=== PATIENT | female | born 1950 | race Caucasian/White ===

== ENCOUNTER 2019-09-18 13:24 | Inpatient (IN) | payer OTHER ==
[~2019-09-18] VITALS: Ht 160 cm; Wt 67.1 kg
[2019-09-18 13:31] VITALS: BP_SYST 143
[2019-09-18 14:06] LABS: BASOPHILS % (AUTO) 0.4 % (0.0-2.0); EOSINOPHILS # (AUTO) 0.1 K/uL (0.0-0.4); EOSINOPHILS % (AUTO) 1.3 % (0.0-4.0); HEMATOCRIT 50.1 % (36-48); HEMOGLOBIN 16.8 g/dL (12.0-16.0); LYMPHOCYTES # (AUTO) 0.7 K/uL (1.0-5.5); LYMPHOCYTES % (AUTO) 11.1 % (20.5-51.5); MEAN CORPUSCULAR HEMOGLOBIN 34 pg (27-31); MEAN CORPUSCULAR HGB CONC 34 % (32-36); MEAN CORPUSCULAR VOLUME 101 fL (79.0-98.0); MONOCYTES # (AUTO) 0.7 K/uL (0.0-1.0); MONOCYTES % (AUTO) 10.5 % (1.7-9.3); NEUTROPHILS # (AUTO) 4.9 K/uL (1.8-7.7); NEUTROPHILS % (AUTO) 76.7 % (40.0-70.0); PLATELET COUNT (AUTO) 203 K/uL (130-430); RED BLOOD CELL COUNT(AUTO) 4.96 MIL/uL (4.2-6.2); WHITE BLOOD COUNT (AUTO) 6.4 K/uL (4.8-10.8)
[2019-09-18 14:18] LABS: CALCIUM 9.3 mg/dL (8.4-11.0); CHLORIDE 96 mmol/L (98-107); GLUCOSE 100 mg/dL (70-99); POTASSIUM 4.1 mmol/L (3.5-5.1); SODIUM SERUM 136 mmol/L (136-145); UREA NITROGEN, BLOOD 6 mg/dL (8-21)
[2019-09-18 14:21] LABS: ANION GAP < 3 (5-15); GFR AFRICAN AMERICAN 158 mL/min (>90)
[2019-09-18 14:29] LABS: ALANINE AMINOTRANSFERASE 17 U/L (12-78); ASPARTATE AMINOTRANSFERASE 19 U/L (10-37); TOTAL BILIRUBIN 0.6 mg/dL (0.0-1.0)
[2019-09-18] MEDS ORDERED: SERT-131 PO (14:34)
[2019-09-18] MEDS ORDERED: PITA4TAB2 PO (14:34)
[2019-09-18] MEDS ORDERED: LOSA50TA3 PO (14:34)
[2019-09-18] MEDS ORDERED: GLYC2TAB21 PO (14:34)
[2019-09-18 14:35] LABS: COLOR,URINE YELLOW (YELLOW)
[2019-09-18 14:36] LABS: BILIRUBIN,URINE NEGATIVE (NEGATIVE); BLOOD, URINE 2+ (NEGATIVE); CLARITY/URINE HAZY (CLEAR); GLUCOSE,URINE NEGATIVE (NEGATIVE); KETONES,URINE NEGATIVE (NEGATIVE); LEUKOCYTE ESTERASE ,URINE 3+ (NEGATIVE); NITRITE, URINE POSITIVE (NEGATIVE); PROTEIN URINE NEGATIVE (NEGATIVE); UROBILINOGEN,URINE 0.2 (0.2-1.0)
[2019-09-18 14:40] LABS: BACTERIA,URINE MODERATE /HPF (None Seen); MUCUS,URINE None Seen /LPF (None Seen); RBC,URINE 0-3 /HPF (0-3); WBC,URINE 50-80 /HPF (0-3)
[2019-09-18] MEDS ORDERED: NACL 0.9% 1,000 ML IV ONE (14:45)
[2019-09-18] MEDS ORDERED: cefTRIAXone 1 GM IVPB PREMIX 50 ML IV ONE (15:15)
[2019-09-18] MEDS ORDERED: ACETAMINOPHEN 325 MG TABLET PO PRN (15:45)
[2019-09-18] MEDS ORDERED: 0.45% NACL 1,000 ML IV ONE (15:45)
[2019-09-18] MEDS ORDERED: ONDANSETRON HCL 4 MG/2 ML VIAL IVP PRN (15:45)
[2019-09-18 16:00] VITALS: BP_SYST 129
[2019-09-18] MEDS ORDERED: GLYCOPYRROLATE 1 MG TABLET PO SCH (16:45)
[2019-09-18] MEDS ORDERED: FLU VACC TS2019(65UP)/MF59C/PF 45 MCG/0.5 ML SYRINGE I.M. PRN (17:00)
[2019-09-18] MEDS ORDERED: GASTROGRAFIN 120 ML ONE (18:27)
[2019-09-18] MEDS: D5NS 1,000 ML IV SCH (18:52)
[2019-09-18 19:50] VITALS: BP_SYST 116
[2019-09-19 00:19] VITALS: BP_SYST 119
[2019-09-19] MEDS ORDERED: DIPHENHYDRAMINE INJ 50 MG/ML VIAL IVP PRN (00:30)
[2019-09-19] MEDS: D5NS 1,000 ML IV SCH (01:41)
[2019-09-19 06:36] LABS: BASOPHILS % (AUTO) 0.5 % (0.0-2.0); EOSINOPHILS # (AUTO) 0.1 K/uL (0.0-0.4); EOSINOPHILS % (AUTO) 0.9 % (0.0-4.0); HEMATOCRIT 41.8 % (36-48); HEMOGLOBIN 13.8 g/dL (12.0-16.0); LYMPHOCYTES # (AUTO) 0.7 K/uL (1.0-5.5); LYMPHOCYTES % (AUTO) 9.4 % (20.5-51.5); MEAN CORPUSCULAR HEMOGLOBIN 34 pg (27-31); MEAN CORPUSCULAR HGB CONC 33 % (32-36); MEAN CORPUSCULAR VOLUME 103 fL (79.0-98.0); MONOCYTES # (AUTO) 0.8 K/uL (0.0-1.0); MONOCYTES % (AUTO) 11.1 % (1.7-9.3); NEUTROPHILS # (AUTO) 5.8 K/uL (1.8-7.7); NEUTROPHILS % (AUTO) 78.1 % (40.0-70.0); PLATELET COUNT (AUTO) 189 K/uL (130-430); RED BLOOD CELL COUNT(AUTO) 4.05 MIL/uL (4.2-6.2); RED CELL DISTRIBUTION WIDTH 13.4 % (9.0-15.0); WHITE BLOOD COUNT (AUTO) 7.4 K/uL (4.8-10.8)
[2019-09-19 08:08] LABS: ALANINE AMINOTRANSFERASE 19 U/L (12-78); ALBUMIN 2.4 g/dL (3.4-4.8); ASPARTATE AMINOTRANSFERASE 14 U/L (10-37); CALCIUM 8.6 mg/dL (8.4-11.0); CHLORIDE 105 mmol/L (98-107); CREATININE 0.47 mg/dL (0.55-1.30); GLUCOSE 116 mg/dL (70-99); POTASSIUM 3.8 mmol/L (3.5-5.1); SODIUM SERUM 142 mmol/L (136-145); TOTAL BILIRUBIN 0.3 mg/dL (0.0-1.0); UREA NITROGEN, BLOOD 6 mg/dL (8-21)
[2019-09-19 08:09] LABS: ANION GAP < 3 (5-15); GFR AFRICAN AMERICAN 169 mL/min (>90)
[2019-09-19 08:30] VITALS: BP_SYST 106
[2019-09-19] MEDS ORDERED: GLYCOPYRROLATE 1 MG TABLET PO SCH (09:00)
[2019-09-19] MEDS ORDERED: cefTRIAXone 1 GM IVPB PREMIX 50 ML IV SCH ×3 (09:00)
[2019-09-19] MEDS ORDERED: LOSARTAN POTASSIUM 50 MG TABLET (COZAAR) PO SCH (09:00)
[2019-09-19] MEDS ORDERED: ATORVASTATIN 20 MG TABLET PO SCH (09:00)
[2019-09-19] MEDS ORDERED: cefTRIAXone 1 GM VIAL IV SCH (09:00)
[2019-09-19] MEDS ORDERED: PANTOPRAZOLE SODIUM 40 MG/VIAL (PROTONIX) IVP SCH (09:00)
[2019-09-19] MEDS ORDERED: SERTRALINE HCL 50 MG TABLET PO SCH (09:00)
[2019-09-19 12:34] VITALS: BP_SYST 114
[2019-09-19 13:21] VITALS: BP_SYST 114
[2019-09-19] MEDS ORDERED: CEPH-568 GT (14:22)
== END 2019-09-19 15:20 | disposition home health service (06) | DRG 394 ==
LOC: SED 13:24 → STU 15:34
PROVIDERS: ADMIT Internal Medicine; ATTEND Internal Medicine
PROC: 0DW6XUZ Revision of Feeding Device in Stomach, External Approach (ICD-10-PCS; principal; 2019-09-18)
DX: K94.23 Gastrostomy malfunction (principal); N39.0 Urinary tract infection, site not specified; E87.3 Alkalosis; G12.21 Amyotrophic lateral sclerosis; E44.1 Mild protein-calorie malnutrition; E78.5 Hyperlipidemia, unspecified; E86.0 Dehydration; I10 Essential (primary) hypertension; R13.10 Dysphagia, unspecified; Y83.3 Surgical operation with formation of external stoma as the cause of abnormal reaction of the patient, or of later complication, without mention of misadventure at the time of the procedure; Y73.8 Miscellaneous gastroenterology and urology devices associated with adverse incidents, not elsewhere classified; Y92.89 Other specified places as the place of occurrence of the external cause; Z74.01 Bed confinement status; Z88.0 Allergy status to penicillin; Z79.899 Other long term (current) drug therapy; Z87.440 Personal history of urinary (tract) infections; Z91.040 Latex allergy status
CPT/HCPCS: 36415; 36600; 74240-TC; 80053; 81000-TC; 82803-TC; 85025; 87040-TC; 87086; 87186-TC; 96365; 99285; C9113; G0378; J0696; J1200; J7030; J7042; Q9963